=== PATIENT | male | born 1965 | race Caucasian/White ===

== ENCOUNTER 2022-07-01 10:22 | Inpatient (IN) | payer MEDICAID ==
[~2022-07-01] VITALS: Ht 177.8 cm; Wt 100.0 kg
[2022-07-01 12:05] LABS: BASOPHILS % 0.8 % (0.0-2.0); EOSINOPHILS % 0.3 % (0.0-5.0); HEMATOCRIT. 45.2 % (42.0-52.0); HEMOGLOBIN. 15.6 g/dL (14.0-18.0); LYMPHOCYTES % 21.3 % (20.0-50.0); MEAN CORPUSCULAR VOLUME 89.9 fL (80.0-94.0); MEAN PLATELET VOLUME 7.8 fl (7.4-10.4); MONOCYTES % 3.2 % (2.0-8.0); NEUTROPHILS % 74.4 % (40.0-76.0); PLATELET 246 x1000/uL (130-400); RED BLOOD CELL COUNT 5.03 mill/uL (4.7-6.1); RED CELL DISTRIBUTION WIDTH 15.4 % (11.6-14.6)
[2022-07-01 12:06] LABS: CHLORIDE 103 mEq/L (98-107)
[2022-07-01 12:18] LABS: ETHANOL BLOOD 369 mg/dL
[2022-07-01] MEDS ORDERED: ONDANSETRON HCL 4MG/2ML INJ IV PRN (13:00)
[2022-07-01] MEDS ORDERED: HYDRALAZINE 20MG/ML VIAL IV PRN (13:00)
[2022-07-01] MEDS ORDERED: DEXTROSE 50% WATER 50ML SYRINGE IV PRN (13:00)
[2022-07-01] MEDS ORDERED: IPRATROPIUM/ALBUTEROL 0.5-3(2.5)MG/3ML NEB HHN PRN (13:00)
[2022-07-01] MEDS ORDERED: AMLODIPINE 5MG TABLET PO SCH (13:00)
[2022-07-01] MEDS ORDERED: ACETAMINOPHEN 325MG TABLET PO PRN ×2 (13:00)
[2022-07-01] MEDS: INSULIN LISPRO 100 UNITS/ML SUBCUT SCH ×3 (13:20→20:20)
[2022-07-01 13:34] LABS: PHOSPHORUS 3.1 mg/dL (2.5-4.9); T4 FREE 0.79 ng/dL (0.76-1.46)
[2022-07-01 13:39] LABS: D-DIMER 0.31 mg/L FEU (<0.50); PROTHROMBIN TIME 10.9 sec (9.6-11.0)
[2022-07-01 13:49] LABS: FOLIC ACID (FOLATE) SERUM 14.8 ng/mL (>5.38)
[2022-07-01] MEDS ORDERED: MVI, ADULT NO.1 10 ML, FOLIC ACID 1 MG, THIAMINE HCL 100 MG in SODIUM CHLORIDE 0.9% 1,0... IV SCH ×4 (14:00)
[2022-07-01] MEDS: SODIUM CHLORIDE 0.45% 1,000 ML IV SCH (14:04)
[2022-07-01] MEDS: PANTOPRAZOLE SODIUM 40 MG/VIAL IV SCH (14:05)
[2022-07-01] MEDS: BLOOD SUGAR DIAGNOSTIC STRIP TEST SCH ×3 (14:11→20:20)
[2022-07-01] MEDS: LORAZEPAM 2MG/ML CPJ IV PRN ×2 (14:16→20:19)
[2022-07-01] MEDS: CHLORDIAZEPOXIDE 25MG CAPSULE PO SCH ×2 (14:24→20:19)
[2022-07-01 14:28] LABS: TOTAL IRON BINDING CAPACITY 378 ug/dL (250-450)
[2022-07-01] MEDS ORDERED: FOLIC ACID 1 MG, THIAMINE HCL 100 MG, MVI, ADULT NO.1 10 ML in DEXTROSE 5% WATER 1,000 ML IV ONE ×4 (14:30)
[2022-07-01 18:30] VITALS: BP 139/86
[2022-07-01] MEDS ORDERED: METO25TA6 MT (19:45)
[2022-07-01] MEDS ORDERED: OMEP20CA14 MT (19:45)
[2022-07-01] MEDS ORDERED: LISI20TA31 MT (19:45)
[2022-07-01 19:46] VITALS: BP 139/84
[2022-07-01 20:00] VITALS: BP 124/73
[2022-07-01] MEDS ORDERED: ATORVASTATIN CALCIUM 40MG TABLET PO SCH (21:00)
[2022-07-02] VITALS: BP 153/93
[2022-07-02 04:00] VITALS: BP 133/88
[2022-07-02] MEDS: LORAZEPAM 2MG/ML CPJ IV PRN (05:33)
[2022-07-02] MEDS: SODIUM CHLORIDE 0.45% 1,000 ML IV SCH (05:33)
[2022-07-02] MEDS: CHLORDIAZEPOXIDE 25MG CAPSULE PO SCH (05:33)
[2022-07-02] MEDS ORDERED: LISINOPRIL 20MG TABLET PO SCH ×2 (05:45→09:00)
[2022-07-02] MEDS ORDERED: METOPROLOL TARTRATE 25MG TABLET PO SCH ×2 (05:45→09:00)
[2022-07-02 06:25] LABS: BASOPHILS % 0.8 % (0.0-2.0); EOSINOPHILS % 1.9 % (0.0-5.0); HEMATOCRIT. 36.8 % (42.0-52.0); HEMOGLOBIN. 12.7 g/dL (14.0-18.0); LYMPHOCYTES % 21.2 % (20.0-50.0); MEAN CORPUSCULAR HEMOGLOBIN 30.8 pg (28.0-32.0); MEAN CORPUSCULAR VOLUME 88.9 fL (80.0-94.0); MEAN PLATELET VOLUME 7.9 fl (7.4-10.4); MONOCYTES % 10.5 % (2.0-8.0); NEUTROPHILS % 65.6 % (40.0-76.0); PLATELET 179 x1000/uL (130-400); RED BLOOD CELL COUNT 4.13 mill/uL (4.7-6.1); RED CELL DISTRIBUTION WIDTH 14.8 % (11.6-14.6)
[2022-07-02 06:59] LABS: CHLORIDE 104 mEq/L (98-107)
[2022-07-02 08:00] VITALS: BP 135/83
[2022-07-02] MEDS: PANTOPRAZOLE SODIUM 40 MG/VIAL IV SCH (08:53)
[2022-07-02] MEDS ORDERED: ENOXAPARIN 30MG/0.3ML SYR SUBCUT SCH (14:00)
== END 2022-07-02 11:53 | disposition left against medical advice (07) | DRG 770 ==
LOC: ER 10:37 → 7WST 12:38 → EDBEDREQTM 12:43 → EDBEDREQ 12:43 → 7WST 07-02 00:18
PROVIDERS: ADMIT Internal Medicine; ATTEND Internal Medicine
DX: F10.129 Alcohol abuse with intoxication, unspecified (principal); E11.9 Type 2 diabetes mellitus without complications; E78.00 Pure hypercholesterolemia, unspecified; E78.5 Hyperlipidemia, unspecified; I10 Essential (primary) hypertension; Z20.822 Contact with and (suspected) exposure to COVID-19; Z53.29 Procedure and treatment not carried out because of patient's decision for other reasons; I25.10 Atherosclerotic heart disease of native coronary artery without angina pectoris; R74.8 Abnormal levels of other serum enzymes; Y90.8 Blood alcohol level of 240 mg/100 ml or more; I25.2 Old myocardial infarction; Z79.899 Other long term (current) drug therapy; Z95.1 Presence of aortocoronary bypass graft
CPT/HCPCS: 36415; 71045; 76700; 80048; 80053; 80061; 80320; 82140; 82550; 82607; 82746; 82962; 83036; 83540; 83550; 83735; 83880; 84100; 84439; 84443; 84484; 85025; 85379; 87426; 93005; 93880; 93970; 99285; C9113; C9803; J2060; J2405; J3411; J3490; J7030; G0480

== ENCOUNTER 2022-07-02 12:00 | Emergency (ER) | payer MEDICAID ==
[~2022-07-02] VITALS: Ht 175.3 cm; Wt 91.0 kg
[~2022-07-02 12:00] MED LIST: LISI20TA31 MT; METO25TA6 MT; OMEP20CA14 MT
[2022-07-02] MEDS ORDERED: SODIUM CHLORIDE 0.9% 1,000 ML IV ONE (12:30)
[2022-07-02 12:37] LABS: BASOPHILS % 0.7 % (0.0-2.0); EOSINOPHILS % 1.5 % (0.0-5.0); HEMATOCRIT. 38.1 % (42.0-52.0); HEMOGLOBIN. 13.1 g/dL (14.0-18.0); LYMPHOCYTES % 28.5 % (20.0-50.0); MEAN CORPUSCULAR HEMOGLOBIN 30.6 pg (28.0-32.0); MEAN CORPUSCULAR VOLUME 89.1 fL (80.0-94.0); MEAN PLATELET VOLUME 7.8 fl (7.4-10.4); MONOCYTES % 11.1 % (2.0-8.0); NEUTROPHILS % 58.2 % (40.0-76.0); PLATELET 180 x1000/uL (130-400); RED BLOOD CELL COUNT 4.27 mill/uL (4.7-6.1); RED CELL DISTRIBUTION WIDTH 15.1 % (11.6-14.6)
[2022-07-02 13:44] LABS: CHLORIDE 104 mEq/L (98-107)
[2022-07-02 14:00] LABS: ETHANOL BLOOD 321 mg/dL
[2022-07-02 17:46] VITALS: BP 123/83
[2022-07-02] MEDS ORDERED: CHLORDIAZEPOXIDE 25MG CAPSULE PO ONE (18:00)
== END 2022-07-02 18:32 | disposition left against medical advice (07) ==
LOC: ER 12:00
DX: F10.10 Alcohol abuse, uncomplicated (principal); I10 Essential (primary) hypertension; E11.9 Type 2 diabetes mellitus without complications; Z98.890 Other specified postprocedural states; Y90.8 Blood alcohol level of 240 mg/100 ml or more
CPT/HCPCS: 36415; 80053; 80320; 85025; 99283; G0480

== ENCOUNTER 2022-07-03 07:40 | Emergency (ER) | payer MEDICAID ==
[~2022-07-03] VITALS: Ht 177.8 cm; Wt 114.0 kg
[2022-07-03] MEDS ORDERED: FOLIC ACID 1 MG, THIAMINE HCL 100 MG, MVI, ADULT NO.1 10 ML in DEXTROSE 5% WATER 1,000 ML IV ONE ×4 (08:00)
[2022-07-03 18:11] VITALS: BP 131/76
== END 2022-07-03 18:12 | disposition home or self-care (01) ==
LOC: ER 07:52
DX: F10.229 Alcohol dependence with intoxication, unspecified (principal); E11.9 Type 2 diabetes mellitus without complications; I10 Essential (primary) hypertension
CPT/HCPCS: 82962; 96365; 96366; 99284; C1893; J3411; J3490; J7070; Z7610

== ENCOUNTER 2022-07-03 20:16 | Emergency (ER) | payer MEDICAID ==
[~2022-07-03] VITALS: Ht 177.8 cm; Wt 87.0 kg
[2022-07-03 21:03] VITALS: BP 110/66
[2022-07-03 21:46] LABS: BASOPHILS % 0.6 % (0.0-2.0); EOSINOPHILS % 1.9 % (0.0-5.0); HEMATOCRIT. 41.6 % (42.0-52.0); LYMPHOCYTES % 20.2 % (20.0-50.0); MEAN CORPUSCULAR HEMOGLOBIN 30.3 pg (28.0-32.0); MEAN CORPUSCULAR VOLUME 90.1 fL (80.0-94.0); MEAN PLATELET VOLUME 7.8 fl (7.4-10.4); MONOCYTES % 6.6 % (2.0-8.0); NEUTROPHILS % 70.7 % (40.0-76.0); PLATELET 202 x1000/uL (130-400); RED BLOOD CELL COUNT 4.62 mill/uL (4.7-6.1); RED CELL DISTRIBUTION WIDTH 15.1 % (11.6-14.6)
[2022-07-03 21:50] LABS: CHLORIDE 110 mEq/L (98-107)
[2022-07-03 22:03] LABS: ETHANOL BLOOD 338 mg/dL
== END 2022-07-04 06:56 | disposition home or self-care (01) ==
LOC: ER 20:16
DX: F10.129 Alcohol abuse with intoxication, unspecified (principal); R51.9 Headache, unspecified; I10 Essential (primary) hypertension; E11.9 Type 2 diabetes mellitus without complications; Y90.8 Blood alcohol level of 240 mg/100 ml or more
CPT/HCPCS: 36415; 80053; 80320; 85025; 99284; G0480

== ENCOUNTER 2022-12-02 06:30 | Emergency (ER) | payer MEDICAID ==
[~2022-12-02] VITALS: Ht 165.1 cm; Wt 97.0 kg
[2022-12-02 06:42] VITALS: O2SAT 96
[2022-12-02] MEDS ORDERED: ONDANSETRON HCL 4MG/2ML INJ IV STA (06:42)
[2022-12-02] MEDS ORDERED: SODIUM CHLORIDE 0.9% 1,000 ML IV ONE (06:45)
[2022-12-02 07:42] LABS: BASOPHILS % 0.6 % (0.0-2.0); EOSINOPHILS % 0.5 % (0.0-5.0); HEMATOCRIT. 41.8 % (42.0-52.0); HEMOGLOBIN. 13.7 g/dL (14.0-18.0); LYMPHOCYTES % 38.5 % (20.0-50.0); MEAN CORPUSCULAR HEMOGLOBIN 26.6 pg (28.0-32.0); MEAN CORPUSCULAR HGB CONC 32.8 g/dL (31.0-37.0); MEAN CORPUSCULAR VOLUME 81.1 fL (80.0-94.0); MEAN PLATELET VOLUME 7.8 fl (7.4-10.4); MONOCYTES % 6.2 % (2.0-8.0); NEUTROPHILS % 54.2 % (40.0-76.0); PLATELET 258 x1000/uL (130-400); RED BLOOD CELL COUNT 5.15 mill/uL (4.7-6.1); RED CELL DISTRIBUTION WIDTH 19.7 % (11.6-14.6); WHITE BLOOD COUNT 5.9 x1000/uL (4.5-11.0)
[2022-12-02] MEDS ORDERED: FOLIC ACID 1 MG, THIAMINE HCL 100 MG, MVI, ADULT NO.1 10 ML in DEXTROSE 5% WATER 1,000 ML IV ONE ×4 (07:45)
[2022-12-02 07:46] LABS: CHLORIDE 106 mEq/L (98-107); INDEX HEMOLYSI 1 (1-3); INDEX ICTERIC 1 (1-4); INDEX LIPEMIC 1 (1-3); POTASSIUM 4.4 mEq/L (3.5-5.1); SODIUM 134 mEq/L (136-145)
[2022-12-02 07:52] LABS: ALANINE AMINOTRANSFERASE 35 IU/L (13-61); ASPARTATE AMINOTRANSFERASE 23 IU/L (15-37); BILIRUBIN TOTAL 0.2 mg/dL (0.1-1.0); CALCIUM 8.3 mg/dL (8.5-10.1); CARBON DIOXIDE 19 mEq/L (21-32); CREATININE 0.8 mg/dL (0.6-1.3); GLUCOSE 109 mg/dL (70-105); PROTEIN TOTAL 8.5 g/dL (6.0-8.3); UREA NITROGEN BLOOD 33 mg/dL (7-21)
[2022-12-02] MEDS ORDERED: ONDANSETRON HCL 4MG/2ML INJ IV PRN (10:00)
[2022-12-02] MEDS ORDERED: CLONIDINE 0.1MG TABLET PO PRN (10:00)
[2022-12-02] MEDS ORDERED: LORAZEPAM 2MG/ML CPJ IV PRN ×2 (10:00→10:45)
[2022-12-02] MEDS ORDERED: DOCUSATE SODIUM 100MG CAPSULE PO PRN (10:00)
[2022-12-02 10:54] LABS: INDEX HEMOLYSI 1 (1-3); INDEX ICTERIC 1 (1-4); INDEX LIPEMIC 1 (1-3)
[2022-12-02 11:12] LABS: CHOLESTEROL 178 mg/dL (<200); HDL CHOLESTEROL 62 mg/dL (40-59); IRON 65 ug/dL (50-175); LDL CHOLESTEROL 85 mg/dL (5-100); NT PRO B-TYPE NATRIURETIC PEP 23 pg/mL (5-125); PHOSPHORUS 2.7 mg/dL (2.5-4.9); TOTAL IRON BINDING CAPACITY 399 ug/dL (250-450); TRIGLYCERIDE 290 mg/dL (0-150); TROPONIN I HIGH SENSITIVITY 6 ng/L (<78)
[2022-12-02 11:23] LABS: VITAMIN B12 SERUM 771 pg/mL (211-911)
[2022-12-02 11:34] LABS: FOLIC ACID (FOLATE) SERUM > 20.00 ng/mL (>5.38)
[2022-12-02 12:00] LABS: ETHANOL BLOOD 288 mg/dL (-10)
[2022-12-02 12:42] VITALS: BP 145/87; PULSE 100; RESP 14; TEMP 98.1
[2022-12-02] MEDS ORDERED: METOPROLOL TARTRATE 25MG TABLET PO SCH (17:00)
[2022-12-02] MEDS ORDERED: ENOXAPARIN 30MG/0.3ML SYR SUBCUT SCH (18:00)
[2022-12-02] MEDS ORDERED: ATORVASTATIN CALCIUM 40MG TABLET PO SCH (21:00)
[2022-12-03] MEDS ORDERED: MVI, ADULT NO.1 10 ML, THIAMINE HCL 100 MG, FOLIC ACID 1 MG in SODIUM CHLORIDE 0.9% 1,0... IV SCH ×4 (09:00)
[2022-12-03] MEDS ORDERED: LISINOPRIL 20MG TABLET PO SCH (09:00)
[2022-12-03] MEDS ORDERED: PANTOPRAZOLE SODIUM 40 MG/VIAL IV SCH (09:00)
== END 2022-12-02 12:33 | disposition left against medical advice (07) ==
LOC: ER 06:30 → CANBEDREQ 12-03 19:53
DX: F10.129 Alcohol abuse with intoxication, unspecified (principal); I10 Essential (primary) hypertension; E11.9 Type 2 diabetes mellitus without complications; Y90.8 Blood alcohol level of 240 mg/100 ml or more
CPT/HCPCS: 80061; 80053; 80320; 82607; 82746; 83036; 83880; 83540; 83550; 83735; 84100; 85025; 84484; 36415; 96361; 96365; 96375; 99284; J3490 ×2; J2405; J3411; J7070; J7030; Z7610 ×5; G0480

== ENCOUNTER 2022-12-08 12:46 | Emergency (ER) | payer MEDICAID ==
[~2022-12-08] VITALS: Ht 162.6 cm; Wt 97.0 kg
[2022-12-08 12:51] VITALS: O2SAT 98
[2022-12-08] MEDS ORDERED: ACETAMINOPHEN 325MG TABLET PO ONE (13:45)
[2022-12-08 16:16] LABS: BASOPHILS % 0.7 % (0.0-2.0); DIFFERENTIAL COMMENT 0; EOSINOPHILS % 0.5 % (0.0-5.0); HEMATOCRIT. 38.3 % (42.0-52.0); HEMOGLOBIN. 12.7 g/dL (14.0-18.0); LYMPHOCYTES % 32.9 % (20.0-50.0); MEAN CORPUSCULAR HEMOGLOBIN 26.4 pg (28.0-32.0); MEAN CORPUSCULAR HGB CONC 33.3 g/dL (31.0-37.0); MEAN CORPUSCULAR VOLUME 79.4 fL (80.0-94.0); MEAN PLATELET VOLUME 7.3 fl (7.4-10.4); MONOCYTES % 4.1 % (2.0-8.0); NEUTROPHILS % 61.8 % (40.0-76.0); PLATELET 215 x1000/uL (130-400); RED BLOOD CELL COUNT 4.82 mill/uL (4.7-6.1); RED CELL DISTRIBUTION WIDTH 20.3 % (11.6-14.6); WHITE BLOOD COUNT 6.1 x1000/uL (4.5-11.0)
[2022-12-08 16:27] LABS: CHLORIDE 108 mEq/L (98-107); INDEX HEMOLYSI 3 (1-3); INDEX ICTERIC 1 (1-4); INDEX LIPEMIC 1 (1-3); POTASSIUM 3.7 mEq/L (3.5-5.1); SODIUM 136 mEq/L (136-145)
[2022-12-08 16:37] LABS: ALBUMIN 3.6 g/dL (3.4-5.0); ASPARTATE AMINOTRANSFERASE 35 IU/L (15-37); BILIRUBIN TOTAL 0.3 mg/dL (0.1-1.0); CARBON DIOXIDE 22 mEq/L (21-32); CREATININE 0.8 mg/dL (0.6-1.3); ETHANOL BLOOD 281 mg/dL (-10); GLUCOSE 98 mg/dL (70-105); PROTEIN TOTAL 7.7 g/dL (6.0-8.3); UREA NITROGEN BLOOD 26 mg/dL (7-21)
[2022-12-08 17:38] VITALS: BP 120/80; PULSE 70; RESP 16; TEMP 98.1
[2022-12-08 18:03] LABS: ALANINE AMINOTRANSFERASE 45 IU/L (13-61); CALCIUM 7.9 mg/dL (8.5-10.1)
== END 2022-12-08 17:41 | disposition home or self-care (01) ==
LOC: ER 12:46
DX: T51.0X1A Toxic effect of ethanol, accidental (unintentional), initial encounter (principal); Y92.9 Unspecified place or not applicable
CPT/HCPCS: 36415; 80053; 80320; 85025; 99283; G0480